=== PATIENT | female | born 1945 | race Caucasian/White ===

== ENCOUNTER 2019-03-26 13:38 | Emergency (ER) | payer MEDICARE, OTHER ==
--- NOTE | 2019-03-26 14:06 | EDM.PDOC ---
ED HPI GENERAL MEDICAL PROBLEM - General Chief Complaint: Genitourinary Problem Stated Complaint: UTI Time Seen by Provider: 03/26/19 14:05 Source of Information: Reports: Patient - History of Present Illness INITIAL COMMENTS - FREE TEXT/NARRATIVE: Alert very pleasant 73-year-old female who appears younger scatological age presenting with dysuria. Patient states her symptoms started this morning when she just felt kind of sluggish and didn't feel like progressing with the day. She drove with her family from [place] to the [place] area to the [facility]. Patient's noted blood in her urine and significant urgency frequency and dysuria along with lower pelvic discomfort at the end of her urinary flow. Patient denies any nausea, vomiting, fever, back pain, chills sweats or significant systemic symptoms. She denies headache, chest pain or upper respiratory tract symptoms. Patient has a history of urinary tract infections usually after intercourse she did not urinate. Patient believes this infection started when she was riding bike 2 days ago was not urinating or drinking enough water. 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, Musculoskeletal History: Reports: Back Pain, Chronic - Past Surgical History Head Surgeries/Procedures: Reports: None HEENT Surgical History: Reports: Other (See Below) Musculoskeletal Surgical History: Reports: None Dermatological Surgical History: Reports: None Social & Family History - Tobacco Use Smoking Status *Q: Former Smoker Used Tobacco, but Quit: Yes Month/Year Tobacco Last Used: 1977 - Caffeine Use Caffeine Use: Reports: Coffee - Alcohol Use Days Per Week of Alcohol Use: 7 Number of Drinks Per Day: 1 Total Drinks Per Week: 7 - Recreational Drug Use Recreational Drug Use: No ED ROS GENERAL - Review of Systems Review Of Systems: ROS reveals no pertinent complaints other than HPI. ED EXAM, GENERAL - Physical Exam Exam: See Below Exam Limited By: No Limitations General Appearance: Alert, WD/WN, No Apparent Distress Ears: Normal External Exam, Hearing Grossly Normal Nose: Normal Inspection Throat/Mouth: Normal Inspection, Normal Voice, No Airway Compromise Head: Normocephalic Neck: Normal Inspection, Full Range of Motion Respiratory/Chest: No Respiratory Distress Cardiovascular: Normal Peripheral Pulses, Regular Rate, Rhythm GI/Abdominal: Normal Bowel Sounds, Soft, Tender (mild suprapubic discomfort) (Female) Exam: Deferred Rectal (Female) Exam: Deferred Back Exam: Normal Inspection, Full Range of Motion. No: CVA Tenderness (R), CVA Tenderness (L) Extremities: Normal Inspection Course - Vital Signs Last Recorded V/S: Last Vital Signs Temp 35.5 C 03/26/19 13:56 Pulse 70 03/26/19 13:56 Resp 16 03/26/19 13:56 BP 149/77 H 03/26/19 13:56 Pulse Ox 98 03/26/19 13:56 - Orders/Labs/Meds Orders: Active Orders 24 hr Category Date Time Status CULTURE URINE [RM] Stat Lab 03/26/19 13:53 Received Labs: Laboratory Tests 03/26/19 Range/Units 13:53 Urine Color Red Urine Appearance Cloudy Urine pH 5.0 (4.5-8.0) Ur Specific [place] 1.010 (1.008-1.030) Urine Protein 100 H (NEGATIVE) mg/dL Urine Glucose (UA) Normal (NEGATIVE) mg/dL Urine Ketones Negative (NEGATIVE) mg/dL Urine Occult Blood Large (NEGATIVE) Urine Nitrite Negative (NEGATIVE) Urine Bilirubin Negative (NEGATIVE) Urine Urobilinogen Normal (NORMAL) mg/dL Ur Leukocyte Esterase Large (NEGATIVE) Urine RBC Semi-packed H (0-5) Urine WBC 40-50 H (0-5) Ur Epithelial Cells Few Amorphous Sediment Not seen Urine Bacteria Moderate Urine Mucus Few Departure - Departure Time of Disposition: 14:15 Disposition: Home, Self-Care 01 Clinical Impression: UTI, Urinary tract infectious disease - Discharge Information Prescriptions: Nitrofurantoin Monohyd/M-Cryst [Macrobid 100 mg Capsule] 100 mg PO BID 7 Days # 14 capsule Phenazopyridine HCl [Pyridium] 100 - 200 mg PO TID PRN 3 Days #15 tablet PRN Reason: Dysuria Instructions: Pyelonephritis, Adult, [id number], Urinary Tract Infection, Adult, Urine Culture and Sensitivity Testing Referrals: Lauren Nguyen DO [Primary Care Provider] - 3 Days (call PCP or Return to Ed if not improving in 48-72 hrs sooner if symptoms worsen or concerns.) Forms: ED Department Discharge Additional Instructions: 1. Increase fluid intake. 2. Naproxen or Ibuprofen for inflammation, pain and swelling due to bladder irritation. 3. Pyridium 100-200mg TID prn urinary discomfort ([place] urine is normal) 4. Macrobid 100mg BID x 7 days or less as directed. 5. Tylenol 500-1000mg every 6hours as needed for pain and if fever noted. 6. Return if symptoms not improving in 48-72 hours. Sooner if fever, nausea/ vomiting. - Problem List & Annotations (1) UTI, Urinary tract infectious disease SNOMED Code(s): 68243413 Code(s): N39.0 - URINARY TRACT INFECTION, SITE NOT SPECIFIED Status: Acute Current Visit: Yes - My Orders Last 24 Hours: My Active Orders 03/26/19 13:53 CULTURE URINE [RM] Stat - Assessment/Plan Last 24 Hours: My Active Orders 03/26/19 13:53 CULTURE URINE [RM] Stat
== END 2019-03-26 14:40 | disposition home or self-care (01) ==
LOC: JP.ED 13:38
DX: N39.0 Urinary tract infection, site not specified (principal); Z87.891 Personal history of nicotine dependence
CPT/HCPCS: 81001; 87086; 87088; 87186; 99283